=== PATIENT | female | born 1955 | race Caucasian/White ===

== ENCOUNTER 2017-04-15 23:34 | Emergency (ER) | payer BC, OTHER ==
--- NOTE | 2017-04-15 23:55 | ED Physician Documentation ---
PD HPI Fall - Stated complaint Stated Complaint: LT KNEE,SEBASTIEN ANKLES,RT SHOULDER INJURY - Chief complaint Chief Complaint: General - History obtained from History obtained from: Patient - History of Present Illness Mechanism of injury: Slipped Fall distance: Standing position Timing - onset: Enter time (20:00), Today Injury(ies) location: Head, Right Upper Extremity, Left Lower Extremity Pain level now: 6 Quality of pain: Pain Associated symptoms: No: LOC, AMS, Neck pain, Weakness Symptoms improve with: Rest, Ice Worsens with: Movement, Palpation Contributing factors: No: Anticoagulated, Intoxicated Recently seen: Not recently seen - Additional information Additional information: slipped on analisa surface tonight, injuring right shoulder, left leg (hip, knee, ankle), and striking her head on a retaining wall. She has h/o left knee ACL repair Review of Systems Cardiac: reports: Reviewed and negative Respiratory: reports: Reviewed and negative GI: reports: Reviewed and negative Musculoskeletal: reports: Extremity pain, Joint pain, Pain with weight bearing. denies: Neck pain, Back pain Neurologic: reports: Headache, Head injury. denies: Focal weakness, Numbness, LOC PD PAST MEDICAL HISTORY - Past Medical History Past Medical History: Yes Cardiovascular: None Respiratory: None Neuro: Headache/migraine Endocrine/Autoimmune: None GI: None FUSE CUTTER: None : None HEENT: None Psych: None Musculoskeletal: None Derm: None - Past Surgical History Past Surgical History: Yes General: Other Ortho: Other /FUSE CUTTER: Other - Present Medications Home Medications: Ambulatory Orders Medication Instructions Recorded Confirmed oxyCODONE/ACET 5/325 [Percocet 5 1 - 2 each PO Q6H PRN #14 tablet 04/16/17 mg/325 mg] - Allergies Allergies/Adverse Reactions: Allergies Allergy/AdvReac Type Severity Reaction Status Date / Time adhesive tape AdvReac Rash Verified 04/15/17 23:53 Latex, Natural Rubber AdvReac Rash Verified 04/15/17 23:53 - Social History Does the pt smoke?: No Smoking Status: Never smoker Does the pt drink ETOH?: No Does the pt have substance abuse?: No - Immunizations Immunizations are current?: No - POLST Patient has POLST: No PD ED PE NORMAL - Vitals Vital signs reviewed: Yes - General General: Alert and oriented X 3, No acute distress, Well developed/nourished - HEENT HEENT: PERRL, EOMI, Other (mild tenderness, small superficial abrasion to right forehead) - Neck Neck: No bony TTP - Neuro Neuro: Alert and oriented X 3, 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, No motor deficit, No sensory deficit PD ED PE EXPANDED - HEENT HEENT Visual: 1 - abrasion, tenderness - Extremities Extremities: Tenderness, Abrasion, Right shoulder (anterolateral aspect), Other (tenderness, swelling left ankle, left knee) Results - Vitals Vitals: Vital Signs - 24 hr 04/15/17 04/16/17 04/16/17 23:48 02:10 03:05 Temperature 36.4 C L 36.5 C Heart Rate 76 71 80 Respiratory 19 16 16 Rate Blood Pressure 131/78 H 128/70 140/62 H O2 Saturation 95 100 93 Oxygen O2 Source Room air - Rads (name of study) CT head Radiology: Prelim report reviewed, See rad report left knee xrays Radiology: Prelim report reviewed, See rad report left ankle xrays Radiology: Prelim report reviewed, See rad report left hip xrays Radiology: Prelim report reviewed, See rad report right shoulder xrays Radiology: Prelim report reviewed, See rad report PD MEDICAL DECISION MAKING - ED course Complexity details: reviewed results, re-evaluated patient, considered differential, d/w patient Departure - Departure Disposition: 01 Home, Self Care Clinical Impression: Fall, Contusion of head, Left ankle sprain, Left knee sprain, Contusion of left hip, Contusion of right shoulder Condition: Good Instructions: ED Crutch Walking, ED Contusion Face, ED Sprain Knee, ED Sprain Ankle, ED Contusion Shoulder Prescriptions: oxyCODONE/ACET 5/325 [Percocet 5 mg/325 mg] 1 - 2 each PO Q6H PRN #14 tablet PRN Reason: Pain Comments: Take either the percocet or your vicodin. Do not take both, as this would be too much acetaminophen which can result in damage to your liver. Contact your orthopedic surgeon Tuesday to arrange for follow-up reevaluation of your injuries, particularly your knee. Discharge Date/Time: 04/16/17 03:20
[2017-04-16] MEDS ORDERED: oxyCODONE 5 MG TABLET PO STA (00:13)
[2017-04-16] MEDS ORDERED: oxyCODONE 5 MG TABLET ONE (00:15)
--- NOTE | 2017-04-16 02:01 | CT Preliminary Report ---
Exam: CT Head W/O IMPRESSION: No acute or focal intracranial abnormality. [facility] SITE ID: [id number]
--- NOTE | 2017-04-16 02:03 | CT Report ---
EXAM: CT HEAD EXAM DATE: 04/16/2017 01:47 AM. CLINICAL HISTORY: Fall, head injury, headache. COMPARISON: None. TECHNIQUE: Multiaxial CT images were obtained from the foramen magnum to the vertex. IV contrast: Non e. Reformats: Coronal. In accordance with CT protocol optimization, one or more of the following dose reduction techniques w ere utilized for this exam: automated exposure control, adjustment of mA and/or KV based on patient s ize, or use of iterative reconstructive technique. FINDINGS: Parenchyma: No intraparenchymal hemorrhage. No evidence of mass, midline shift, or CT findings of inf arction. Claudio-white differentiation is distinct. Extraaxial Spaces: Normal for age. No subdural or epidural collections identified. Ventricles: Normal in size and position. Sinuses: Imaged paranasal sinuses, orbits, and mastoids show no significant abnormality. Bones: No evidence of fracture or calvarial defect. Other: None. IMPRESSION: No acute or focal intracranial abnormality. [facility] Referring Provider Line: [phone] SITE ID: [id number]
--- NOTE | 2017-04-16 02:13 | XRAY Preliminary Report ---
Exam: XR Hip w/Pelvis 2-3V LT IMPRESSION: No acute osseous abnormality demonstrated. [facility] SITE ID: [id number]
--- NOTE | 2017-04-16 02:15 | XRAY Preliminary Report ---
Exam: XR Knee 3 View LT IMPRESSION: No acute osseous abnormality demonstrated. [facility] SITE ID: [id number]
--- NOTE | 2017-04-16 02:15 | XRAY Preliminary Report ---
Exam: XR Shoulder 3 View RT IMPRESSION: 1. No acute fracture or dislocation seen. [facility] SITE ID: [id number]
--- NOTE | 2017-04-16 02:16 | XRAY Preliminary Report ---
Exam: XR Ankle 3 View LT IMPRESSION: No acute osseous abnormality demonstrated. [facility] SITE ID: [id number]
--- NOTE | 2017-04-16 02:16 | XRAY Report ---
EXAM: LEFT HIP AND PELVIS RADIOGRAPHY EXAM DATE: 04/16/2017 01:50 AM. HISTORY: Fall, pain, tenderness. COMPARISONS: None. TECHNIQUE: 1 view of the pelvis and 2 view of the hip. FINDINGS: Bones: No acute fracture or suspicious bone lesion. Bone island within the right femoral neck noted. Joints: There is no dislocation. Severe symphysis pubis degenerative change. Soft Tissues: Normal. No soft tissue swelling. IMPRESSION: No acute osseous abnormality demonstrated. [facility] Referring Provider Line: [phone] SITE ID: [id number]
--- NOTE | 2017-04-16 02:17 | XRAY Report ---
EXAM: LEFT KNEE RADIOGRAPHY EXAM DATE: 04/16/2017 01:49 AM. CLINICAL HISTORY: Fall, injury, pain, tenderness. COMPARISON: None. TECHNIQUE: 3 views. A total of 5 exposures are provided for review. FINDINGS: Bones: Prior ACL repair. No fractures or bone lesions. Bones are osteopenic. Joints: Normal. No effusion. No subluxations. Soft Tissues: Normal. No soft tissue swelling. IMPRESSION: No acute osseous abnormality demonstrated. [facility] Referring Provider Line: [phone] SITE ID: [id number]
--- NOTE | 2017-04-16 02:18 | XRAY Report ---
EXAM: RIGHT SHOULDER RADIOGRAPHY EXAM DATE: 04/16/2017 01:49 AM. CLINICAL HISTORY: Fall, pain, tenderness. COMPARISON: None. TECHNIQUE: 4 views. FINDINGS: Bones: No acute fracture seen. Joints: The glenohumeral and acromioclavicular joints are intact. Soft tissues: Visualized hemithorax is unremarkable. IMPRESSION: 1. No acute fracture or dislocation seen. [facility] Referring Provider Line: [phone] SITE ID: [id number]
--- NOTE | 2017-04-16 02:19 | XRAY Report ---
EXAM: LEFT ANKLE RADIOGRAPHY EXAM DATE: 04/16/2017 01:49 AM. CLINICAL HISTORY: Fall, pain, tenderness. COMPARISON: None. TECHNIQUE: 3 views. FINDINGS: Bones: Small plantar calcaneal spur. No fractures or bone lesions. Joints: Normal. No effusion. No subluxations. The ankle mortise is normally aligned. Soft Tissues: Normal. No soft tissue swelling. IMPRESSION: No acute osseous abnormality demonstrated. [facility] Referring Provider Line: [phone] SITE ID: [id number]
[2017-04-16 03:05] VITALS: BP 140/62
[2017-04-16] MEDS ORDERED: oxyCODONE/ACET 5/325 Prepack 4 PO STA (03:05)
[2017-04-16] MEDS ORDERED: oxyCODONE/ACET 5/325 Prepack 4 PO ONE (03:06)
== END 2017-04-16 03:20 | disposition home or self-care (01) ==
LOC: ED 23:34
DX: S93.402A Sprain of unspecified ligament of left ankle, initial encounter (principal); S83.92XA Sprain of unspecified site of left knee, initial encounter; S00.83XA Contusion of other part of head, initial encounter; S70.02XA Contusion of left hip, initial encounter; S40.011A Contusion of right shoulder, initial encounter; S00.81XA Abrasion of other part of head, initial encounter; S40.211A Abrasion of right shoulder, initial encounter; W01.198A Fall on same level from slipping, tripping and stumbling with subsequent striking against other object, initial encounter; Y93.01 Activity, walking, marching and hiking
CPT/HCPCS: 70450; 73030; 73502; 73562; 73610; 99283; 99284; A9270